=== PATIENT | male | born 1960 | race Two or more races ===

== ENCOUNTER 2019-05-11 06:48 | Emergency (ER) | payer MEDICARE, MEDICAID ==
[~2019-05-11] VITALS: Ht 172.7 cm; Wt 77.1 kg
[2019-05-11 08:30] LABS: Basophils # (auto) 0 uL; Basophils % (auto) 0.3 % (0.0-2.0); Eosinophils # (auto) 0 uL; Eosinophils % (auto) 0.2 % (0.0-7.0); Hematocrit 31.1 % (41.0-53.0); Hemoglobin 10.7 g/dL (13.5-17.5); Lymphocytes # (auto) 0.6 uL; Lymphocytes % (auto) 8.9 % (10.0-50.0); Mean Corpuscular Hemoglobin 32.7 pg (28.0-32.0); Mean Corpuscular Hgb Conc. 34.2 g/dL (32.0-36.0); Mean Corpuscular Volume 95.5 fL (80.0-100.0); Monocytes # (auto) 0.2 uL; Monocytes % (auto) 3.3 % (0.0-12.0); Neutrophils # (auto) 6.3 uL; Neutrophils % (auto) 87.3 % (37.0-80.0); Platelet Count (auto) 118 10^3/uL (140-450); Red Blood Cells 3.26 10^6/uL (4.5-5.90); Red Cell Distribution Width 14.8 % (11.8-14.3); White Blood Cell 7.2 10^3/uL (4.4-10.8)
[2019-05-11 08:44] LABS: Alanine Aminotransferase 29 U/L (16-61); Albumin 3.8 g/dL (3.4-5.0); Anion Gap 13 (5-15); Blood Urea Nitrogen 50 mg/dL (7-18); Calcium 6.1 mg/dL (8.5-10.1); Carbon Dioxide 25 mmol/L (21-32); Chloride 101 mmol/L (98-107); Glucose 141 mg/dL (74-106); Magnesium 2.5 mg/dL (1.6-2.6); Potassium 4.1 mmol/L (3.5-5.1); Sodium 139 mmol/L (136-145)
[2019-05-11 08:49] LABS: Alkaline Phosphatase 122 U/L (45-117); Aspartate Aminotransferase 31 U/L (15-37); Bilirubin, Total 0.3 mg/dL (0.2-1.0); GFR African American 7 mL/min; GFR Non-African American 5 mL/min; Total Protein 7.6 g/dL (6.4-8.2)
[2019-05-11 09:20] LABS: BUN/Creatinine Ratio 4.8
[2019-05-11] MEDS ORDERED: HYDROcodone-ACET 5/325MG TAB PO ONE (09:45)
[2019-05-11 11:56] VITALS: BP 161/89
== END 2019-05-11 12:37 | disposition short-term general hospital (02) ==
LOC: ER 06:48
DX: I62.9 Nontraumatic intracranial hemorrhage, unspecified (principal); I12.0 Hypertensive chronic kidney disease with stage 5 chronic kidney disease or end stage renal disease; E11.22 Type 2 diabetes mellitus with diabetic chronic kidney disease; N18.6 End stage renal disease; R42 Dizziness and giddiness; Z99.2 Dependence on renal dialysis
CPT/HCPCS: 36415; 70450; 80053; 83735; 84484; 85025; 93005

== ENCOUNTER 2022-12-19 15:37 | Inpatient (IN) | payer MEDICARE, MEDICAID ==
[~2022-12-19] VITALS: Ht 165.1 cm; Wt 68.0 kg
[2022-12-19 16:48] LABS: Basophils # (auto) 0 10 ^3/uL (0-0.2); Basophils % (auto) 0.7 % (0.0-2.0); Eosinophils # (auto) 0.2 10 ^3/uL (0-0.8); Eosinophils % (auto) 3.8 % (0.0-7.0); Hematocrit 30.5 % (41.0-53.0); Hemoglobin 10.3 g/dL (13.5-17.5); Lymphocytes # (auto) 0.8 10 ^3/uL (0.4-5.4); Lymphocytes % (auto) 16.4 % (10.0-50.0); Mean Corpuscular Hemoglobin 32.6 pg (28.0-32.0); Mean Corpuscular Hgb Conc. 33.8 g/dL (32.0-36.0); Mean Corpuscular Volume 96.5 fL (80.0-100.0); Monocytes # (auto) 0.5 10 ^3/uL (0-1.3); Monocytes % (auto) 9.5 % (0.0-12.0); Neutrophils # (auto) 3.5 10 ^3/uL (1.6-8.6); Neutrophils % (auto) 69.6 % (37.0-80.0); Nucleated Red Blood Cells % 0.2 %; Red Blood Cells 3.16 10^6/uL (4.5-5.90); Red Cell Distribution Width 16.3 % (11.8-14.3); White Blood Cell 5.1 10^3/uL (4.4-10.8)
[2022-12-19 17:06] LABS: Albumin 3.1 g/dL (3.4-5.0); Calcium 9.1 mg/dL (8.5-10.1); Potassium 4.9 mmol/L (3.5-5.1)
[2022-12-19 17:08] LABS: BUN/Creatinine Ratio 11.2
[2022-12-19 17:11] LABS: Bilirubin, Total 0.5 mg/dL (0.2-1.0); Total Protein 7.9 g/dL (6.4-8.2)
[2022-12-19] MEDS ORDERED: DOCUSATE SOD 100 MG CAP PO PRN (20:15)
[2022-12-19] MEDS ORDERED: DEXTROSE (50%) 50ML SYRG IV PRN (20:15)
[2022-12-19] MEDS ORDERED: MORPHINE SULFATE INJ 2 MG/ml SYRG IV PRN (20:15)
[2022-12-19] MEDS ORDERED: ONDANSETRON HCL 4 MG/2 ML VIAL IV PRN (20:15)
[2022-12-19 20:51] LABS: Magnesium 2.9 mg/dL (1.6-2.6); Phosphorus 6.4 mg/dL (2.5-4.90)
[2022-12-19] MEDS ORDERED: HEPARIN SODIUM (PORCINE) 5000 UNITS/ML 1ML VIAL SC SCH (22:00)
[2022-12-19] MEDS: hydrALAZINE HCL 20 MG/ML VL IV PRN (22:24)
[2022-12-20] MEDS: ACCU-CHEK COMFORT CURVE STRIP VI SCH ×3 (00:06→12:45)
[2022-12-20] MEDS ORDERED: amLODIPine BESYLATE 5 MG TAB PO ONE (01:45)
[2022-12-20] MEDS: hydrALAZINE HCL 20 MG/ML VL IV PRN ×2 (04:44→13:44)
[2022-12-20] MEDS: InsuLIN REG 1unit/0.01ml Soln (100units/ml) SC SCH ×3 (05:29→12:45)
[2022-12-20 06:01] LABS: Basophils # (auto) 0 10 ^3/uL (0-0.2); Basophils % (auto) 0.4 % (0.0-2.0); Eosinophils # (auto) 0.2 10 ^3/uL (0-0.8); Eosinophils % (auto) 3.1 % (0.0-7.0); Hematocrit 30.7 % (41.0-53.0); Hemoglobin 10.1 g/dL (13.5-17.5); Lymphocytes # (auto) 0.8 10 ^3/uL (0.4-5.4); Lymphocytes % (auto) 13.6 % (10.0-50.0); Mean Corpuscular Hemoglobin 31.7 pg (28.0-32.0); Mean Corpuscular Hgb Conc. 32.8 g/dL (32.0-36.0); Mean Corpuscular Volume 96.6 fL (80.0-100.0); Monocytes # (auto) 0.6 10 ^3/uL (0-1.3); Monocytes % (auto) 9.3 % (0.0-12.0); Neutrophils # (auto) 4.5 10 ^3/uL (1.6-8.6); Neutrophils % (auto) 73.6 % (37.0-80.0); Nucleated Red Blood Cells % 0.1 %; Red Blood Cells 3.18 10^6/uL (4.5-5.90); Red Cell Distribution Width 16.1 % (11.8-14.3); White Blood Cell 6.1 10^3/uL (4.4-10.8)
[2022-12-20 06:18] LABS: Potassium 4.7 mmol/L (3.5-5.1)
[2022-12-20 06:23] LABS: Albumin 3.1 g/dL (3.4-5.0); BUN/Creatinine Ratio 11.3; Calcium 9.2 mg/dL (8.5-10.1)
[2022-12-20 06:26] LABS: Bilirubin, Total 0.6 mg/dL (0.2-1.0); Total Protein 7.8 g/dL (6.4-8.2)
[2022-12-20] MEDS ORDERED: amLODIPine BESYLATE 5 MG TAB PO SCH (10:00)
[2022-12-20 16:05] VITALS: BP 187/81
[2022-12-21] MEDS ORDERED: SODIUM CHL 0.9% 1000 ML BAG XX ONE (07:00)
[2022-12-21] MEDS ORDERED: EPOETIN ALFA-EPBX 10,000 UNIT/1ML VIAL SC ONE (21:00)
== END 2022-12-20 16:15 | DRG 682 ==
LOC: ER 15:37 → EDBD 15:37 → TELE 20:09
PROVIDERS: ADMIT Nurse Practitioner Family; ATTEND Internal Medicine Geriatric Medicine
DX: I12.0 Hypertensive chronic kidney disease with stage 5 chronic kidney disease or end stage renal disease (principal); N18.6 End stage renal disease; G81.94 Hemiplegia, unspecified affecting left nondominant side; E11.22 Type 2 diabetes mellitus with diabetic chronic kidney disease; D63.1 Anemia in chronic kidney disease; Z99.2 Dependence on renal dialysis; Z86.73 Personal history of transient ischemic attack (TIA), and cerebral infarction without residual deficits
CPT/HCPCS: 36415; 80053; 82140; 82962; 83735; 84100; 85025; 87426; 93005; 96374; G0378